=== PATIENT | female | born 1990 | race African-American/Black ===

== ENCOUNTER 2017-04-01 22:27 | Emergency (ER) | payer OTHER ==
[~2017-04-01] VITALS: Ht 172.7 cm; Wt 90.8 kg
[~2017-04-01 22:27] MED LIST: AMOXICILLIN500 M1 PO; CLEOCIN300 MG PO; MOTRIN600 MG PO; Motrin PO; NORCO 5/3251 TABLET PO; NOVOLIN N100 UNITS/ SC; NovoLOG, HumaLOG SC; PRENATAL TABLE1 EAC3 PO; Percocet 5/325,Endoc PO
[2017-04-01] MEDS ORDERED: NORCO 5/3251 TABLET PO (23:33)
[2017-04-01] MEDS ORDERED: CLINDAMYCIN HC300 MG PO (23:33)
[2017-04-01] MEDS ORDERED: NAPROSYN500 MG PO (23:33)
[2017-04-02 00:08] VITALS: BP 124/78
== END 2017-04-02 00:12 | disposition home or self-care (01) ==
LOC: EME 22:27
PROC: 0H97XZZ Drainage of Abdomen Skin, External Approach (ICD-10-PCS; principal; 2017-04-01)
DX: L02.214 Cutaneous abscess of groin (principal); L73.2 Hidradenitis suppurativa; R00.0 Tachycardia, unspecified
CPT/HCPCS: 99281; 99283

== ENCOUNTER 2017-06-02 13:27 | Emergency (ER) | payer OTHER ==
[~2017-06-02] VITALS: Ht 172.7 cm; Wt 91.0 kg
[~2017-06-02 13:27] MED LIST changes: +CLINDAMYCIN HC300 MG PO; +NAPROSYN500 MG PO
[2017-06-02 14:25] LABS: HEMATOCRIT 40.7 % (36.0-46.0); MCH 31.2 PG (29.0-34.0); MCHC 35.4 G/DL (30.0-36.0); MCV 88.3 FL (83-99); MEAN PLAT.VOLUME 11.7 uM^3 (9.5-12.4); PLATELET COUNT 215 K/uL (156-360); RBC DIS.WIDTH-CV 11.8 % (11.8-14.6); RBC DIS.WIDTH-SD 37.5 % (39-53); RED BLOOD COUNT 4.61 M/uL (3.80-5.20); WHITE BLOOD COUNT 8.9 K/uL (4.1-10.2)
[2017-06-02 14:28] LABS: ADD MIUA? YES; BILIRUBIN NEGATIVE; BLOOD MODERATE; COLOR AMBER ((YELLOW)); GLUCOSE (STRIP) >=500; KETONES NEGATIVE; LEUKOCYTES MODERATE; NITRITE POSITIVE; PROTEIN (STRIP) 100; SPECIFIC GRAVITY 1.036 (1.000-1.030)
[2017-06-02 14:35] LABS: BACTERIA 2+ /HPF; EPITHELIAL CELLS NONE SEEN /HPF; MUCUS NONE SEEN /LPF; UCUL ADDED? YES; WHITE BLOOD CELLS TNTC /HPF (0-5); WHITE BLOOD CELLS CLUMP FEW /HPF (0-5)
[2017-06-02 14:35] LABS: CHLORIDE 101 mEq/L (99-109); POTASSIUM 4.3 mEq/L (3.7-5.4)
[2017-06-02 14:36] LABS: SODIUM 136 mEq/L (136-147)
[2017-06-02 14:37] LABS: GLUCOSE 336 mg/dL (70-99)
[2017-06-02 14:39] LABS: ANION GAP 11 MEQ/L (2-14)
[2017-06-02 14:41] LABS: GFR ESTIMATE (CALCULATED) > 59 mL/min/
[2017-06-02 14:42] LABS: UREA NITROGEN (BUN) 11 mg/dL (9-23)
[2017-06-02 15:32] LABS: QUANTITATIVE HCG < 4.0 MIU/ML
[2017-06-02] MEDS ORDERED: MACROBID100 MG PO (16:12)
[2017-06-02] MEDS ORDERED: DIFLUCAN150 MG PO (16:12)
[2017-06-02] MEDS ORDERED: GLUCOPHAGE500 MG PO (16:13)
[2017-06-02 16:46] VITALS: BP 144/84
[2017-06-04 12:42] LABS: CHLAMYDIA TRACHOMATIS NEGATIVE; NEISSERIA GONORRHOEAE NEGATIVE
== END 2017-06-02 16:47 | disposition home or self-care (01) ==
LOC: EME 13:27
PROVIDERS: Nurse Practitioner Family; Physician Assistant
DX: E11.65 Type 2 diabetes mellitus with hyperglycemia (principal); N39.0 Urinary tract infection, site not specified; R19.7 Diarrhea, unspecified; N89.8 Other specified noninflammatory disorders of vagina; Z91.14 Patient's other noncompliance with medication regimen; Z11.3 Encounter for screening for infections with a predominantly sexual mode of transmission
CPT/HCPCS: 80048; 81003; 82010; 84702; 84703; 85027; 87077; 87086; 87186; 87210; 87491; 87591; 99281; 99284

== ENCOUNTER 2017-07-28 23:40 | Emergency (ER) | payer OTHER ==
[~2017-07-28] VITALS: Ht 170.2 cm; Wt 95.6 kg
[~2017-07-28 23:40] MED LIST changes: +DIFLUCAN150 MG PO; +GLUCOPHAGE500 MG PO; +MACROBID100 MG PO
[2017-07-29 04:21] VITALS: BP 133/102
== END 2017-07-29 04:17 | disposition home or self-care (01) ==
LOC: EME 23:40
DX: O98.511 Other viral diseases complicating pregnancy, first trimester (principal); J06.9 Acute upper respiratory infection, unspecified; E11.9 Type 2 diabetes mellitus without complications; Z3A.10 10 weeks gestation of pregnancy; Z79.4 Long term (current) use of insulin
CPT/HCPCS: 99281; 99284

== ENCOUNTER 2017-12-27 16:35 | Inpatient (IN) | payer OTHER ==
[~2017-12-27] VITALS: Ht 172.7 cm; Wt 100.9 kg
[2017-12-27] VITALS (19 sets, daily range): BP systolic 136–171; BP diastolic 77–110
[2017-12-27 17:16] LABS: BASOPHIL (%) 0.2 % (0-1); EOSINOPHIL (%) 0.9 % (0-5); EOSINOPHIL COUNT 0.1 K/uL (0-0.3); HEMATOCRIT 33.6 % (36.0-46.0); HEMOGLOBIN 11.8 G/DL (11.9-15.5); IMMATURE GRANULOCYTE (%) 0.4 % (0.0-0.7); LYMPHOCYTE (%) 26.8 % (15-42); LYMPHOCYTE COUNT 2.5 K/uL (1.0-2.8); MCH 30.4 PG (29.0-34.0); MCHC 35.1 G/DL (30.0-36.0); MCV 86.6 FL (83-99); MONOCYTE (%) 6.8 % (3-12); MONOCYTE COUNT 0.6 K/uL (0-0.8); NEUTROPHIL (%) 64.9 % (45-76); PLATELET COUNT 214 K/uL (156-360); RBC DIS.WIDTH-CV 12.4 % (11.8-14.6); RBC DIS.WIDTH-SD 39.5 % (39-53); RED BLOOD COUNT 3.88 M/uL (3.80-5.20); WHITE BLOOD COUNT 9.2 K/uL (4.1-10.2)
[2017-12-27 17:50] LABS: ALBUMIN 3.3 G/DL (3.2-4.8); ALKALINE PHOSPHATASE 100 IU/L (3-129); ALT (GPT) 7 IU/L (3-49); AST (GOT) 11 IU/L (2-34); CHLORIDE 105 MEQ/L (99-109); CREATININE 0.7 MG/DL (0.6-1.3); GFR ESTIMATE (CALCULATED) > 59 mL/min/; GLUCOSE 216 mg/dL (70-99); POTASSIUM 3.6 MEQ/L (3.7-5.4); SODIUM 137 MEQ/L (136-147); TOTAL BILIRUBIN 0.8 MG/DL (0.0-1.0); TOTAL PROTEIN 6.4 G/DL (6.4-8.3); UREA NITROGEN (BUN) 7 mg/dL (9-23); URIC ACID 3.6 mg/dL (3.1-9.2)
[2017-12-27 18:50] LABS: APPEARANCE SL.HAZY ((CLEAR)); BILIRUBIN NEGATIVE; BLOOD NEGATIVE; COLOR YELLOW ((YELLOW)); GLUCOSE (STRIP) >=500; KETONES 20; LEUKOCYTES NEGATIVE; NITRITE NEGATIVE; PROTEIN (STRIP) 30
[2017-12-27] MEDS ORDERED: INSULIN PUMP MC (19:02)
[2017-12-27 19:56] LABS: RED BLOOD CELLS RARE /HPF (0-5)
[2017-12-27 19:58] LABS: EPITHELIAL CELLS 2+ /HPF; UCUL ADDED? YES
[2017-12-27 19:59] LABS: BACTERIA 2+ /HPF
[2017-12-27 20:00] LABS: MUCUS NONE SEEN /LPF
[2017-12-27 22:27] LABS: AMPHETAMINE NEGATIVE (500 ng/mL); BARBITURATES NEGATIVE (200 ng/mL); BENZODIAZEPINES NEGATIVE (150 ng/mL); BUPRENORPHINE NEGATIVE (10 ng/mL); COCAINE NEGATIVE (150 ng/mL); METHADONE NEGATIVE (200 ng/mL); METHAMPHETAMINE NEGATIVE (500 ng/mL); OPIATES (MORPHINE) NEGATIVE (100 ng/mL); OXYCODONE NEGATIVE (100 ng/mL); PHENCYCLIDINE NEGATIVE (25 ng/mL); PROPOXYPHENE NEGATIVE (300 ng/mL); THC CANNABINOIDS NEGATIVE (50 ng/mL); TRICYCLIC ANTIDEPRESSANTS NEGATIVE (300 ng/mL)
[2017-12-28] VITALS (25 sets, daily range): BP systolic 116–180; BP diastolic 61–110
[2017-12-28 06:25] LABS: BASOPHIL (%) 0.1 % (0-1); EOSINOPHIL (%) 0 % (0-5); HEMATOCRIT 31.8 % (36.0-46.0); HEMOGLOBIN 11.1 G/DL (11.9-15.5); IMMATURE GRANULOCYTE (%) 0.3 % (0.0-0.7); LYMPHOCYTE (%) 11.2 % (15-42); LYMPHOCYTE COUNT 1.1 K/uL (1.0-2.8); MCH 30.5 PG (29.0-34.0); MCHC 34.9 G/DL (30.0-36.0); MCV 87.4 FL (83-99); MONOCYTE (%) 2.7 % (3-12); MONOCYTE COUNT 0.3 K/uL (0-0.8); NEUTROPHIL (%) 85.7 % (45-76); NEUTROPHIL COUNT 8.7 K/uL (1.8-6.4); PLATELET COUNT 197 K/uL (156-360); RBC DIS.WIDTH-CV 12.3 % (11.8-14.6); RBC DIS.WIDTH-SD 39.7 % (39-53); RED BLOOD COUNT 3.64 M/uL (3.80-5.20); WHITE BLOOD COUNT 10.2 K/uL (4.1-10.2)
[2017-12-28 06:47] LABS: ALBUMIN 3.3 G/DL (3.2-4.8); ALKALINE PHOSPHATASE 90 IU/L (3-129); ALT (GPT) 7 IU/L (3-49); AST (GOT) 10 IU/L (2-34); CHLORIDE 101 MEQ/L (99-109); CREATININE 0.7 MG/DL (0.6-1.3); GFR ESTIMATE (CALCULATED) > 59 mL/min/; MAGNESIUM 4.1 mg/dl (1.3-2.7); POTASSIUM 3.8 MEQ/L (3.7-5.4); SODIUM 132 MEQ/L (136-147); TOTAL PROTEIN 6.2 G/DL (6.4-8.3); UREA NITROGEN (BUN) 8 mg/dL (9-23)
[2017-12-28 06:51] LABS: GLUCOSE 343 mg/dL (70-99); TOTAL BILIRUBIN 0.6 MG/DL (0.0-1.0)
[2017-12-28 20:40] LABS: UR CREATININE CONCENTRATION 32.9 MG/DL
[2017-12-29] VITALS (25 sets, daily range): BP systolic 119–180; BP diastolic 68–98
[2017-12-29 12:02] LABS: BASE EXCESS -1.1 mEq/L (-3 to +3); BICARBONATE 26.9 mEq/L (22-26); CARBOXY HGB 0 % (0-5); METHEMOGLOBIN 2 % (0-1.5); PCO2 60 mm Hg (35-45); PO2 30 mm Hg (80-100); SITE CORD GAS; pH 7.26 (7.35-7.45)
[2017-12-29 12:04] LABS: SITE CORD GAS
[2017-12-29 12:06] LABS: CARBOXY HGB 0.8 % (0-5); METHEMOGLOBIN 1.6 % (0-1.5); PCO2 51 mm Hg (35-45); PO2 30 mm Hg (80-100); pH 7.31 (7.35-7.45)
[2017-12-29 12:07] LABS: BASE EXCESS -1.1 mEq/L (-3 to +3); BICARBONATE 25.7 mEq/L (22-26)
[2017-12-30] VITALS (15 sets, daily range): BP systolic 122–150; BP diastolic 72–92
[2017-12-30 06:19] LABS: BASOPHIL (%) 0.1 % (0-1); EOSINOPHIL (%) 0.1 % (0-5); HEMATOCRIT 30.8 % (36.0-46.0); HEMOGLOBIN 10.4 G/DL (11.9-15.5); IMMATURE GRANULOCYTE (%) 0.4 % (0.0-0.7); LYMPHOCYTE COUNT 1.9 K/uL (1.0-2.8); MCH 30.1 PG (29.0-34.0); MCHC 33.8 G/DL (30.0-36.0); MONOCYTE COUNT 1.2 K/uL (0-0.8); NEUTROPHIL (%) 71.4 % (45-76); NEUTROPHIL COUNT 7.8 K/uL (1.8-6.4); PLATELET COUNT 191 K/uL (156-360); RBC DIS.WIDTH-CV 12.9 % (11.8-14.6); RBC DIS.WIDTH-SD 41.9 % (39-53); RED BLOOD COUNT 3.46 M/uL (3.80-5.20); WHITE BLOOD COUNT 10.9 K/uL (4.1-10.2)
[2017-12-30 06:44] LABS: ALKALINE PHOSPHATASE 78 IU/L (3-129); ALT (GPT) 6 IU/L (3-49); CHLORIDE 104 MEQ/L (99-109); CREATININE 0.7 MG/DL (0.6-1.3); GFR ESTIMATE (CALCULATED) > 59 mL/min/; GLUCOSE 184 mg/dL (70-99); POTASSIUM 4.1 MEQ/L (3.7-5.4); SODIUM 138 MEQ/L (136-147); TOTAL BILIRUBIN 0.7 MG/DL (0.0-1.0); TOTAL PROTEIN 5.8 G/DL (6.4-8.3); UREA NITROGEN (BUN) 4 mg/dL (9-23)
[2017-12-30 06:45] LABS: AST (GOT) 15 IU/L (2-34)
[2017-12-31] VITALS (7 sets, daily range): BP systolic 133–162; BP diastolic 77–90
[2018-01-01 03:09] VITALS: BP 139/69
[2018-01-01 08:35] VITALS: BP 158/75
[2018-01-01 12:09] VITALS: BP 154/86
[2018-01-01 15:30] VITALS: BP 146/70
[2018-01-01 19:55] VITALS: BP 155/82
[2018-01-01 23:22] VITALS: BP 138/85
[2018-01-02 03:00] VITALS: BP 125/68
[2018-01-02 07:28] VITALS: BP 174/92
[2018-01-02 07:29] VITALS: BP 152/76
[2018-01-02] MEDS ORDERED: ENDOCET 5-3251 EACH PO (09:30)
[2018-01-02] MEDS ORDERED: IBUPROFEN800 MG PO (09:30)
[2018-01-02] MEDS ORDERED: LABETALOL HCL200 MG PO (09:30)
== END 2018-01-02 14:45 | disposition home or self-care (01) | DRG 765 ==
LOC: LDRP-OP 16:35 → 2WEST 16:36 → LDRP-OP 03-22 15:09
PROVIDERS: Advanced Practice Midwife; Obstetrics & Gynecology; Obstetrics & Gynecology Gynecology
DX: O14.14 Severe pre-eclampsia complicating childbirth (principal); O60.14X0 Preterm labor third trimester with preterm delivery third trimester, not applicable or unspecified; E11.65 Type 2 diabetes mellitus with hyperglycemia; O99.02 Anemia complicating childbirth; O34.211 Maternal care for low transverse scar from previous cesarean delivery; D62 Acute posthemorrhagic anemia; Z3A.32 32 weeks gestation of pregnancy; O99.214 Obesity complicating childbirth; E66.9 Obesity, unspecified; Z37.0 Single live birth; Z30.2 Encounter for sterilization; Z79.4 Long term (current) use of insulin; Z68.30 Body mass index [BMI] 30.0-30.9, adult
CPT/HCPCS: 36600; 80053; 81003; 81050; 82570; 82803; 82948; 83735; 84156; 84550; 85025; 85730; 86850; 86900; 86901; 87086; 88302; 88307; G0378; J0690; J0702; J1170; J1815; J2270; J3010; J3475; J7120